=== PATIENT | male | born 1945 | race Caucasian/White ===

== ENCOUNTER 2022-03-20 17:16 | Emergency (ER) | payer OTHER ==
[~2022-03-20] VITALS: Ht 182.9 cm; Wt 99.3 kg
--- NOTE | 2022-03-20 17:22 | NUR ---
BIB [facility] IN A SITTING POSITION,C/O TREMORS FOR A FEW DAYS, NEIGHBORS TOLD EMS THAT HIS "MENTATION IS DETERIORATING." ATTACHED TO MONITOR, NO RESP DISTRESS NOTED. DR JIMENEZ AT BEDSIDE, AWAITING MD ORDERS.
--- NOTE | 2022-03-20 18:52 | NUR ---
URINE COLLECTED AND SENT
--- NOTE | 2022-03-20 19:14 | NUR ---
COVID TEST COLLECTED AND SENT
[2022-03-20 19:20] LABS: BILIRUBIN,URINE NEGATIVE (NEGATIVE); COLOR,URINE YELLOW (YELLOW); LEUKOCYTE ESTERASE ,URINE NEGATIVE (NEGATIVE); NITRITE, URINE NEGATIVE (NEGATIVE); PROTEIN,URINE NEGATIVE (NEGATIVE); UGLUCOSE NEGATIVE (NEGATIVE); UROBILINOGEN,URINE 0.2 EU/dL (0.2)
[2022-03-20 19:32] LABS: ALANINE AMINOTRANSFERASE 26 U/L (12-78); ALBUMIN 3.8 g/dL (3.4-5.0); ALKALINE PHOSPHATASE 51 U/L (46-116); ASPARTATE AMINOTRANSFERASE 22 U/L (15-37); BILIRUBIN,DIRECT 0.2 mg/dL (0.0-0.2); BILIRUBIN,TOTAL 0.5 mg/dL (0.2-1.0); CALCIUM, SERUM 9.1 mg/dL (8.5-10.1); CARBON DIOXIDE 31 mmol/L (21-32); CHLORIDE 102 mmol/L (98-107); CREATININE 1.2 mg/dL (0.6-1.3); GLUCOSE 130 mg/dL (74-106); POTASSIUM 3.8 mmol/L (3.5-5.1); SODIUM SERUM 138 mmol/L (136-145); TOTAL PROTEIN, SERUM 7.1 g/dL (6.4-8.2); UREA NITROGEN, BLOOD 24 mg/dL (7-18)
--- NOTE | 2022-03-20 19:39 | NUR ---
Note delfinajean claude in EDM - 03/20/22 at 1953 by KERRIE RECEIVED PT AWAKE, [id number]. ABLE TO MAKE NEEDS KNOWN. PATIENT CAME EARLIER WITH CC OF ALTERED MENTAL STATUS AND TREMORS. PATIENT IS ATTACHED TO MONITOR. VITALS CHECKED.
[2022-03-20 20:04] LABS: BASOPHILS # (AUTO) 0.1 K/uL (0.0-0.2); BASOPHILS % (AUTO) 0.8 % (0.0-2.0); EOSINOPHILS % (AUTO) 1.5 % (0.0-6.0); HEMATOCRIT 44 % (39-51); HEMOGLOBIN 14.7 g/dL (13.5-17.5); LYMPHOCYTES # (AUTO) 2.3 K/uL (0.8-4.8); LYMPHOCYTES % (AUTO) 27.7 % (20.0-44.0); MEAN CORPUSCULAR HGB CONC 34 g/dl (31.0-36.0); MEAN CORPUSCULAR VOLUME 94 fL (80-96); MONOCYTES # (AUTO) 0.7 K/uL (0.1-1.30); NEUTROPHILS # (AUTO) 5.2 K/uL (1.8-8.9); PLATELET COUNT (AUTO) 177 K/uL (150-450); RED BLOOD CELL COUNT(AUTO) 4.67 MIL/uL (4.5-6.0); WHITE BLOOD COUNT (AUTO) 8.4 K/uL (4.3-11.0)
[2022-03-20 20:21] LABS: BACTERIA,URINE None seen /HPF (None Seen); RBC,URINE 0-2 /HPF (0-2); SQUAMOUS EPITHELIAL CELL,UR 0-2 /HPF (None Seen); WBC,URINE 0-2 /HPF (0-3)
--- NOTE | 2022-03-20 20:37 | NUR ---
[facility] [place]140 [place] [id number] [id number], [place]
--- NOTE | 2022-03-20 20:40 | NUR ---
Written and verbal after care instructions given. Patient verbalizes understanding of instruction.
[2022-03-20] MEDS ORDERED: hydrALAZINE HCL IV 20 MG VIAL ONE (21:05)
[2022-03-20] MEDS ORDERED: hydrALAZINE HCL 25 MG TABLET PO ONE (21:30)
[2022-03-20] MEDS ORDERED: hydrALAZINE HCL IV 20 MG VIAL IV ONE (21:30)
[2022-03-20] MEDS ORDERED: hydrALAZINE HCL 50 MG TABLET ONE (22:26)
--- NOTE | 2022-03-20 22:32 | NUR ---
called [facility] for transportation
--- NOTE | 2022-03-20 22:50 | NUR ---
DR PRADHAN SPOKE TO JULY BLISS
--- NOTE | 2022-03-20 23:45 | NUR ---
[facility] BY [facility]INIT[facility] PAULINO AT 0100
--- NOTE | 2022-03-21 01:13 | NUR ---
[facility] AT BED SIDE
--- NOTE | 2022-03-21 01:17 | NUR ---
REPORT GIVEN TO EMT [facility].
--- NOTE | 2022-03-21 01:22 | NUR ---
IV CANNULA REMOVED.
--- NOTE | 2022-03-21 01:39 | NUR ---
Patient discharged to home in stable condition. Written and verbal after care instructions given. Patient verbalizes understanding of instruction.
[2022-03-21 01:40] VITALS: BP 153/81
== END 2022-03-21 01:41 | disposition home or self-care (01) ==
LOC: ER 17:18
DX: R25.1 Tremor, unspecified (principal); R41.3 Other amnesia; Z20.822 Contact with and (suspected) exposure to COVID-19; G93.89 Other specified disorders of brain; I48.91 Unspecified atrial fibrillation; I10 Essential (primary) hypertension; E11.9 Type 2 diabetes mellitus without complications
CPT/HCPCS: 99285; 96374; 93005; 71045; 70450; 85025; 80048; 80076; 81001; 36415; 84484; 87426; 80320; J0360; C9803; G0480